=== PATIENT | male | born 1955 | race Caucasian/White ===

== ENCOUNTER 2016-10-27 17:12 | Inpatient (IN) | payer MEDICARE, OTHER ==
[~2016-10-27] VITALS: Ht 190.5 cm; Wt 130.4 kg
[2016-10-27] MEDS ORDERED: HYDROmorphone 1 MG/ML, 1ML ONE (17:49)
[2016-10-27] MEDS ORDERED: SODIUM CHLORIDE FLUSH 10ML SYR IVF ONE (18:00)
[2016-10-27] MEDS ORDERED: HYDROmorphone 1 MG/ML, 1ML IVPush PRN (18:00)
[2016-10-27] MEDS ORDERED: SODIUM CHLORIDE 0.9% 1,000ML IVBOLUS ONE ×3 (18:00→21:00)
[2016-10-27 18:13] LABS: ASPARTATE AMINO TRANSFERASE 27 U/L (15-37); BLOOD UREA NITROGEN 20 mg/dL (7-18)
[2016-10-27] MEDS ORDERED: OXYM30TA8 PO (18:44)
[2016-10-27] MEDS ORDERED: DILT180C72 PO (18:46)
[2016-10-27] MEDS ORDERED: OXYC10TA6 PO (18:46)
[2016-10-27] MEDS ORDERED: HYDR12.53 PO (18:47)
[2016-10-27] MEDS ORDERED: LOSA100T6 PO (18:47)
[2016-10-27] MEDS ORDERED: CEFTRIAXONE PMX 1GM/50ML 50 ML ONE (19:39)
[2016-10-27] MEDS ORDERED: CEFTRIAXONE PMX 1GM/50ML 50 ML IV ONE (20:00)
[2016-10-27] MEDS ORDERED: PHENAZOPYRIDINE 200 MG TABLET ONE (20:28)
[2016-10-27] MEDS ORDERED: PHENAZOPYRIDINE 200 MG TABLET PO ONE (20:30)
[2016-10-27] MEDS ORDERED: LABETALOL 5MG/ML, 20ML IVPush PRN (21:30)
[2016-10-27] MEDS ORDERED: BISACODYL 10 MG SUPP PR PRN (21:30)
[2016-10-27] MEDS ORDERED: DOCUSATE 100 MG CAPSULE PO PRN (21:30)
[2016-10-27] MEDS ORDERED: ONDANSETRON ODT 4 MG PO PRN (21:30)
[2016-10-27] MEDS ORDERED: ACETAMINOPHEN 325 MG TABLET PO PRN (21:30)
[2016-10-27] MEDS ORDERED: CEFTRIAXONE 2 GM in SODIUM CHLORIDE 0.9% 50 ML IV SCH (21:30)
[2016-10-27] MEDS ORDERED: TRAZODONE 50MG TABLET PO PRN (21:30)
[2016-10-27] MEDS ORDERED: POLYETHYLENE GLYCOL 17 GM PACKET PO PRN (21:30)
[2016-10-27] MEDS ORDERED: OXYcodone IR 5MG TABLET PO PRN (22:00)
[2016-10-27] MEDS: CEFTRIAXONE PMX 2GM/50ML 50 ML IV SCH (23:29)
[2016-10-27] MEDS: HEPARIN 5,000 UNITS/ML, 1ML SQ SCH (23:29)
[2016-10-27 23:48] VITALS: BP 108/72
[2016-10-28 00:08] VITALS: BP 100/62
[2016-10-28] MEDS: NS + 20MEQ KCL 1,000 ML IV SCH ×5 (00:17→23:35)
[2016-10-28 04:02] VITALS: BP 123/68
[2016-10-28 06:00] LABS: ASPARTATE AMINO TRANSFERASE 20 U/L (15-37); BLOOD UREA NITROGEN 19 mg/dL (7-18)
[2016-10-28] MEDS ORDERED: OXYcodone IR 5MG TABLET PO PRN (06:00)
[2016-10-28] MEDS ORDERED: TEMPLATE NON-FORMULARY MED. (Oxycodone Hcl** 10 MG) PO SCH (06:00)
[2016-10-28 07:23] VITALS: BP 117/71
[2016-10-28] MEDS ORDERED: OXYMORPHONE HCL 30 MG HOMEMEDPO PRN (09:00)
[2016-10-28] MEDS ORDERED: OXYMORPHONE HCL 30 MG PO SCH (09:00)
[2016-10-28] MEDS: HEPARIN 5,000 UNITS/ML, 1ML SQ SCH ×3 (09:44→23:36)
[2016-10-28 12:32] VITALS: BP 129/90
[2016-10-28] MEDS ORDERED: LABETALOL 5MG/ML, 20ML IVPush PRN (13:39)
[2016-10-28 19:56] VITALS: BP 144/78
[2016-10-28] MEDS: CEFTRIAXONE PMX 2GM/50ML 50 ML IV SCH (23:35)
[2016-10-29 00:10] VITALS: BP 112/68
[2016-10-29 04:09] VITALS: BP 135/84
[2016-10-29 05:35] LABS: BLOOD UREA NITROGEN 13 mg/dL (7-18)
[2016-10-29 05:39] LABS: ASPARTATE AMINO TRANSFERASE 28 U/L (15-37)
[2016-10-29] MEDS: NS + 20MEQ KCL 1,000 ML IV SCH ×3 (05:50→16:59)
[2016-10-29 07:12] VITALS: BP 138/79
[2016-10-29] MEDS: HEPARIN 5,000 UNITS/ML, 1ML SQ SCH ×3 (10:03→22:42)
[2016-10-29 13:39] VITALS: BP 157/90
[2016-10-29 18:54] VITALS: BP 148/88
[2016-10-29] MEDS: CEFTRIAXONE PMX 2GM/50ML 50 ML IV SCH (22:51)
[2016-10-30] MEDS: NS + 20MEQ KCL 1,000 ML IV SCH (00:47)
[2016-10-30 01:57] VITALS: BP 133/81
[2016-10-30 04:56] LABS: ASPARTATE AMINO TRANSFERASE 21 U/L (15-37); BLOOD UREA NITROGEN 12 mg/dL (7-18)
[2016-10-30] MEDS: HEPARIN 5,000 UNITS/ML, 1ML SQ SCH ×2 (07:28→15:30)
[2016-10-30 07:36] VITALS: BP 168/95
[2016-10-30] MEDS ORDERED: NS + 20MEQ KCL 1,000 ML IV SCH (08:30)
[2016-10-30 14:23] VITALS: BP 152/88
[2016-10-30] MEDS ORDERED: CEFTRIAXONE PMX 2GM/50ML 50 ML IV ONE (14:30)
[2016-10-30] MEDS ORDERED: CEFD300C37 PO (14:56)
== END 2016-10-30 16:48 | disposition home or self-care (01) | DRG 871 ==
LOC: ED 18:39 → EDIP 20:43 → 4EST 21:48 → DCLOUNGE 10-30 16:34
PROVIDERS: ADMIT Internal Medicine; ATTEND Internal Medicine
DX: A41.9 Sepsis, unspecified organism (principal); N17.0 Acute kidney failure with tubular necrosis; E43 Unspecified severe protein-calorie malnutrition; E87.1 Hypo-osmolality and hyponatremia; R65.20 Severe sepsis without septic shock; D64.9 Anemia, unspecified; Z96.651 Presence of right artificial knee joint; I45.10 Unspecified right bundle-branch block; E11.9 Type 2 diabetes mellitus without complications; E87.6 Hypokalemia; I10 Essential (primary) hypertension; M15.9 Polyosteoarthritis, unspecified; N13.9 Obstructive and reflux uropathy, unspecified; Z80.42 Family history of malignant neoplasm of prostate; Z85.46 Personal history of malignant neoplasm of prostate; Z79.899 Other long term (current) drug therapy; Z68.35 Body mass index [BMI] 35.0-35.9, adult
CPT/HCPCS: 36415; 80053; 81001; 83036; 83605; 83735; 84145; 84439; 84443; 85025; 85610; 85730; 86850; 86900; 87040; 87086; 87150; 93005; 96361; 96374; J0696; J1170; J1644; J3480; J7030

== ENCOUNTER 2017-08-13 18:07 | Day surgery (SDC) | payer MEDICARE ==
[~2017-08-13 18:07] MED LIST: CEFD300C37 PO; DILT180C72 PO; HYDR12.53 PO; LOSA100T6 PO; OXYC10TA6 PO; OXYM30TA8 PO
[2017-08-13 18:30] VITALS: BP 135/85
[2017-08-13] MEDS ORDERED: FENTANYL PF 100 MCG/2ML ONE ×2 (19:03→19:50)
[2017-08-13] MEDS ORDERED: MIDAZOLAM 1 MG/ML, 2ML ONE (19:03)
[2017-08-13 19:05] LABS: BASOPHILS # (AUTO) 0.06 x10^3/uL (0-0.1); BASOPHILS % (AUTO) 1 % (0-1); EOSINOPHILS # (AUTO) 0.38 x10^3/uL (0-0.4); EOSINOPHILS % (AUTO) 4 % (1-7); LYMPHOCYTES # (AUTO) 3.12 x10^3/uL (1-3.4); LYMPHOCYTES % (AUTO) 29 % (22-44); MD NO; MEAN CORPUSCULAR HEMOGLOBIN 30.6 pg (27.5-34.5); MEAN CORPUSCULAR HGB CONC 33.8 g/dL (33.2-36.2); MEAN CORPUSCULAR VOLUME 90.6 fL (81-97); MEAN PLATELET VOLUME 8.2 fL (7.4-10.4); MONOCYTES # (AUTO) 0.78 x10^3/uL (0.2-0.8); MONOCYTES % (AUTO) 7 % (2-9); NEUTROPHILS # (AUTO) 6.36 x10^3/uL (1.8-6.8); NEUTROPHILS % (AUTO) 60 % (42-75); PLATELET COUNT 224 x10^3/uL (130-400); RED BLOOD COUNT 5.29 x10^6/uL (4.38-5.82); RED CELL DISTRIBUTION WIDTH 14.9 % (9.4-14.8)
[2017-08-13 19:12] LABS: ALANINE AMINOTRANSFERASE 68 U/L (12-78); ALBUMIN 3.8 g/dL (3.4-5.0); ANION GAP 8 mmol/L (5-15); CALCIUM 8.4 mg/dL (8.5-10.1); CHLORIDE 102 mmol/L (98-107); CREATININE 1.09 mg/dL (0.7-1.3)
[2017-08-13 19:14] LABS: ALKALINE PHOSPHATASE 95 U/L (45-117); BILIRUBIN,TOTAL 0.3 mg/dL (0.2-1.0); TOTAL PROTEIN 7.6 g/dL (6.4-8.2)
[2017-08-13] MEDS ORDERED: CEFTRIAXONE 1,000 MG ONE (19:24)
[2017-08-13] MEDS ORDERED: PROPOFOL 10 MG/ML, 20ML ONE ×2 (19:26→19:48)
[2017-08-13] MEDS ORDERED: FENTANYL PF 100 MCG/2ML IV PRN (20:00)
[2017-08-13] MEDS ORDERED: HYDROmorphone 1 MG/ML, 1ML IV PRN (20:00)
[2017-08-13] MEDS ORDERED: LABETALOL 5MG/ML, 20ML IV PRN (20:00)
[2017-08-13] MEDS ORDERED: hydrALAzine 20 MG/ML, 1ML IV PRN (20:00)
[2017-08-13] MEDS ORDERED: morphine SULFATE 10 MG/ML, 1ML IV PRN (20:00)
[2017-08-13] MEDS ORDERED: ACETAMINOPHEN 325 MG TABLET PO PRN (20:00)
[2017-08-13] MEDS ORDERED: MEPERIDINE/PF 25MG/0.5ML IVPush PRN (20:00)
[2017-08-13] MEDS ORDERED: PLEASE ENTER HEIGHT AND WEIGHT MC SCH (20:00)
[2017-08-13] MEDS ORDERED: OXYcodone 5 MG/5 ML ORAL.SOL UDC PO PRN (20:00)
[2017-08-13] MEDS ORDERED: OXYcodone 5 MG/5 ML ORAL.SOL UDC ONE (20:47)
[2017-08-13] MEDS ORDERED: ACETAMINOPHEN 325 MG TABLET ONE (20:48)
[2017-08-13] MEDS ORDERED: ACETAMINOPHEN 650 MG/20.3 ML UDC ONE (20:48)
[2017-08-13] MEDS ORDERED: NITR100C56 PO (21:40)
[2017-08-13] MEDS ORDERED: BACI3.5O8 TP (21:45)
== END 2017-08-13 22:33 | disposition home or self-care (01) ==
LOC: OR 18:07 → 4NOR 18:29 → OR 22:33
PROVIDERS: ATTEND Urology
DX: N35.8 Other urethral stricture (principal); N42.89 Other specified disorders of prostate; I10 Essential (primary) hypertension; E11.9 Type 2 diabetes mellitus without complications; Z87.39 Personal history of other diseases of the musculoskeletal system and connective tissue
CPT/HCPCS: 36415; 52281; 74018; 76000; 80053; 85025; 93005; C1757; C1769; J0696; J2250; J2704; J3010

== ENCOUNTER 2017-10-24 09:21 | Day surgery (SDC) | payer MEDICARE ==
[~2017-10-24] VITALS: Ht 188 cm; Wt 123.3 kg
[~2017-10-24 09:21] MED LIST changes: +BACI3.5O8 TP; +NITR100C56 PO
[2017-10-24] MEDS ORDERED: OXYC20TA42 PO (09:55)
[2017-10-24] MEDS ORDERED: KETAMINE BC (09:55)
[2017-10-24 10:07] VITALS: BP 144/86
[2017-10-24] MEDS ORDERED: LIDOCAINE-MPF 1%, 2ML ONE (10:15)
[2017-10-24 10:18] LABS: MICROSCOPIC NOT IND
[2017-10-24 10:24] LABS: CULTURE INDICATED? NO
[2017-10-24] MEDS ORDERED: PLEASE ENTER HEIGHT AND WEIGHT MC SCH (10:30)
[2017-10-24] MEDS ORDERED: LACTATED RINGERS 1,000 ML IV SCH (11:00)
[2017-10-24] MEDS ORDERED: LIDOCAINE-MPF 1%, 2ML INFIL ONE (11:00)
[2017-10-24] MEDS ORDERED: FENTANYL PF 100 MCG/2ML ONE ×2 (11:21→12:48)
[2017-10-24] MEDS ORDERED: MIDAZOLAM 1 MG/ML, 2ML ONE (11:21)
[2017-10-24] MEDS ORDERED: DEXAMETHASONE 4 MG/ML, 1ML ONE (11:46)
[2017-10-24] MEDS ORDERED: ONDANSETRON 2MG/ML, 2ML ONE (11:46)
[2017-10-24] MEDS ORDERED: PROPOFOL 10 MG/ML, 20ML ONE (11:46)
[2017-10-24] MEDS ORDERED: CEFAZOLIN 1,000 MG ONE (11:46)
[2017-10-24] MEDS ORDERED: MIDAZOLAM 1 MG/ML, 2ML IV PRN (12:00)
[2017-10-24] MEDS ORDERED: LABETALOL 5MG/ML, 20ML IV PRN (12:00)
[2017-10-24] MEDS ORDERED: SCOPOLAMINE PATCH, 1.5MG PATCH.TD72 TD PRN (12:00)
[2017-10-24] MEDS ORDERED: PROMETHAZINE 12.5 MG SUPP PR PRN (12:00)
[2017-10-24] MEDS ORDERED: ALBUTEROL SULFATE 2.5 MG/3 ML NPPB PRN (12:00)
[2017-10-24] MEDS ORDERED: MEPERIDINE/PF 25MG/0.5ML IVPush PRN (12:00)
[2017-10-24] MEDS ORDERED: OXYcodone 5 MG/5 ML ORAL.SOL UDC PO PRN (12:00)
[2017-10-24] MEDS ORDERED: PROMETHAZINE 25 MG/ML, 1ML IV PRN (12:00)
[2017-10-24] MEDS ORDERED: ACETAMINOPHEN 325 MG TABLET PO PRN (12:00)
[2017-10-24] MEDS ORDERED: ONDANSETRON ODT 8 MG PO PRN (12:00)
[2017-10-24] MEDS ORDERED: hydrALAzine 20 MG/ML, 1ML IV PRN (12:00)
[2017-10-24] MEDS ORDERED: MORPHINE SULFATE 4 MG/ML, 1ML IVPush PRN (12:00)
[2017-10-24] MEDS ORDERED: OXYcodone 5 MG/5 ML ORAL.SOL UDC ONE (12:48)
[2017-10-24] MEDS ORDERED: ACETAMINOPHEN 650 MG/20.3 ML UDC ONE (12:48)
[2017-10-24] MEDS: FENTANYL PF 100 MCG/2ML IV PRN ×2 (13:08→13:15)
== END 2017-10-24 15:10 | disposition home or self-care (01) ==
LOC: OUT 09:21
PROVIDERS: ATTEND Urology
DX: N35.9 Urethral stricture, unspecified (principal); I10 Essential (primary) hypertension; E11.9 Type 2 diabetes mellitus without complications; Z98.890 Other specified postprocedural states; Z87.39 Personal history of other diseases of the musculoskeletal system and connective tissue; Z85.46 Personal history of malignant neoplasm of prostate
CPT/HCPCS: 52281; 81003; 82962; 87086; C1769; J0690; J1100; J2250; J2405; J2704; J3010; J3490; J7120

== ENCOUNTER 2018-06-03 07:31 | Inpatient (IN) | payer MEDICARE ==
[~2018-06-03] VITALS: Ht 185.4 cm; Wt 129.3 kg
[~2018-06-03 07:31] MED LIST changes: +HYDR12.517 PO; -HYDR12.53 PO; +KETAMINE BC; +LOSA100T14 PO; -LOSA100T6 PO; +OXYC20TA42 PO
[2018-06-03 08:30] LABS: MEAN CORPUSCULAR HEMOGLOBIN 33.1 pg (27.5-34.5); MEAN CORPUSCULAR HGB CONC 34.3 g/dL (33.2-36.2); MEAN CORPUSCULAR VOLUME 96.5 fL (81-97); MEAN PLATELET VOLUME 8.4 fL (7.4-10.4); PLATELET COUNT 176 x10^3/uL (130-400); RED BLOOD COUNT 4.23 x10^6/uL (4.38-5.82); RED CELL DISTRIBUTION WIDTH 15.1 % (9.4-14.8)
[2018-06-03 08:41] LABS: ALANINE AMINOTRANSFERASE 54 U/L (12-78); ALBUMIN 3.1 g/dL (3.4-5.0); ANION GAP 6 mmol/L (5-15); CALCIUM 8.1 mg/dL (8.5-10.1); CHLORIDE 97 mmol/L (98-107); CREATININE 0.96 mg/dL (0.7-1.3)
[2018-06-03 08:45] LABS: ALKALINE PHOSPHATASE 100 U/L (45-117); BILIRUBIN,TOTAL 0.4 mg/dL (0.2-1.0); TOTAL PROTEIN 6.5 g/dL (6.4-8.2); TROPONIN I < 0.015 ng/mL (0.000-0.045)
[2018-06-03 09:07] LABS: MD YES
[2018-06-03 09:16] LABS: <RBC MORPHOLOGY> NORMAL; BAND#(MANUAL) 1.78 x10^3/uL; BANDS%(MANUAL) 12 % (0-7); LYMPH#(MANUAL) 1.33 x10^3/uL (1-3.4); LYMPHS% (MANUAL) 9 % (22-44); MONOS#(MANUAL) 1.78 x10^3/uL (0.3-2.7); MONOS% (MANUAL) 12 % (2-9); SEG#(MANUAL) 9.92 x10^3/uL (1.8-6.8); SEGS% (MANUAL) 67 % (42-75)
[2018-06-03 09:17] LABS: <PLATELET ESTIMATE> ADEQUATE; <PLT MORPHOLOGY> NORMAL PLT MORPH
[2018-06-03] MEDS ORDERED: POTA10TA31 PO (09:35)
[2018-06-03] MEDS ORDERED: CHOL500015 PO (09:35)
[2018-06-03] MEDS ORDERED: PRED5TAB PO (09:35)
[2018-06-03] MEDS ORDERED: ABIR250T PO (09:35)
[2018-06-03] MEDS ORDERED: TAXOTERE (09:35)
[2018-06-03] MEDS ORDERED: LUPRON (09:35)
[2018-06-03] MEDS ORDERED: DENO120V IV (09:35)
[2018-06-03] MEDS ORDERED: CEFTRIAXONE PMX 1GM/50ML 50 ML IVPB ONE (10:30)
[2018-06-03] MEDS ORDERED: CEFTRIAXONE PMX 1GM/50ML 50 ML ONE (10:45)
--- NOTE | 2018-06-03 11:04 | NUR ---
IV started. VSS. Estrella Jiang APN at bedside. No other needs.
[2018-06-03] MEDS ORDERED: OXYcodone IR 5MG TABLET PO PRN (11:30)
[2018-06-03] MEDS ORDERED: POLYETHYLENE GLYCOL 17 GM PACKET PO PRN (11:30)
[2018-06-03] MEDS ORDERED: ACETAMINOPHEN 325 MG TABLET PO PRN (11:30)
[2018-06-03] MEDS ORDERED: BISACODYL 10 MG SUPP PR PRN (11:30)
[2018-06-03] MEDS ORDERED: ONDANSETRON 2MG/ML, 2ML IVPush PRN (11:30)
[2018-06-03] MEDS ORDERED: POTASSIUM CHLORIDE 20 MEQ TAB.ER.PRT PO ONE (11:30)
[2018-06-03] MEDS ORDERED: DOCUSATE 100 MG CAPSULE PO PRN (11:30)
[2018-06-03] MEDS ORDERED: VANCOMYCIN PER PHARMACY MC PRN (11:30)
[2018-06-03] MEDS ORDERED: LABETALOL 5MG/ML, 20ML IVPush PRN (11:30)
[2018-06-03] MEDS ORDERED: KETOROLAC 30 MG/1 ML IV PRN (11:30)
--- NOTE | 2018-06-03 11:33 | NUR ---
Constanza bermudez. US at bedside.
--- NOTE | 2018-06-03 11:56 | NUR ---
Report to SMITH Dunn.
[2018-06-03 11:58] LABS: C-REACTIVE PROTEIN, QUANT 5.7 mg/dL (0.02-0.49); THYROID STIMULATING HORMONE 0.624 mIU/L (0.358-3.740)
[2018-06-03 12:04] LABS: HCT (SEDRATE) 40.9 % (39.2-51.8)
[2018-06-03 12:42] VITALS: BP 138/82
[2018-06-03] MEDS: NS + 20MEQ KCL 1,000 ML IV SCH (12:48)
[2018-06-03] MEDS: AMPICILLIN/SULBACTAM 3 GM in SODIUM CHLORIDE 0.9% 100 ML IV SCH ×2 (12:48→18:35)
[2018-06-03] MEDS: ENOXAPARIN 40 MG/0.4 ML SQ SCH (12:57)
[2018-06-03] MEDS: XGEVA MC SCH ×2 (13:00→21:00)
[2018-06-03] MEDS ORDERED: PHARMACOKINETIC CONSULTATION MC ONE (13:00)
[2018-06-03] MEDS ORDERED: PHARMACOKINETIC MONITORING MC PRN (13:00)
[2018-06-03] MEDS: VANCOMYCIN 2,000 MG in SODIUM CHLORIDE 0.9% 500 ML IV SCH (13:43)
[2018-06-03 15:59] LABS: TROPONIN I < 0.015 ng/mL (0.000-0.045)
[2018-06-03 20:20] VITALS: BP 128/76
[2018-06-03 20:30] LABS: TROPONIN I < 0.015 ng/mL (0.000-0.045)
[2018-06-03] MEDS: OxyconTIN ER 20 MG TAB.ER PO SCH (20:38)
[2018-06-04] MEDS: AMPICILLIN/SULBACTAM 3 GM in SODIUM CHLORIDE 0.9% 100 ML IV SCH ×4 (01:11→19:34)
[2018-06-04 02:30] VITALS: BP 126/85
[2018-06-04 04:46] LABS: MEAN CORPUSCULAR HEMOGLOBIN 33.6 pg (27.5-34.5); MEAN CORPUSCULAR HGB CONC 34.3 g/dL (33.2-36.2); MEAN CORPUSCULAR VOLUME 97.7 fL (81-97); MEAN PLATELET VOLUME 8.1 fL (7.4-10.4); PLATELET COUNT 150 x10^3/uL (130-400); RED BLOOD COUNT 3.65 x10^6/uL (4.38-5.82)
[2018-06-04 05:00] LABS: ALBUMIN 2.5 g/dL (3.4-5.0); ANION GAP 5 mmol/L (5-15); CALCIUM 7.2 mg/dL (8.5-10.1); CHLORIDE 102 mmol/L (98-107)
[2018-06-04] MEDS: XGEVA MC SCH ×3 (05:00→21:00)
[2018-06-04 05:05] LABS: ALANINE AMINOTRANSFERASE 42 U/L (12-78); ALKALINE PHOSPHATASE 80 U/L (45-117); BILIRUBIN,TOTAL 0.4 mg/dL (0.2-1.0); CREATININE 0.76 mg/dL (0.7-1.3); TOTAL PROTEIN 5.4 g/dL (6.4-8.2)
[2018-06-04 05:49] LABS: MD YES
[2018-06-04 05:52] LABS: BAND#(MANUAL) 1.25 x10^3/uL; BANDS%(MANUAL) 6 % (0-7); LYMPH#(MANUAL) 0.62 x10^3/uL (1-3.4); LYMPHS% (MANUAL) 3 % (22-44); MONOS#(MANUAL) 3.74 x10^3/uL (0.3-2.7); MONOS% (MANUAL) 18 % (2-9); SEG#(MANUAL) 15.18 x10^3/uL (1.8-6.8); SEGS% (MANUAL) 73 % (42-75)
[2018-06-04 05:55] LABS: <RBC MORPHOLOGY> NORMAL
[2018-06-04 05:56] LABS: <PLATELET ESTIMATE> ADEQUATE; <PLT MORPHOLOGY> NORMAL PLT MORPH
[2018-06-04] MEDS: NS + 20MEQ KCL 1,000 ML IV SCH (06:16)
[2018-06-04 07:40] VITALS: BP 137/82
[2018-06-04] MEDS ORDERED: OxyconTIN ER 10 MG TAB.ER ONE (08:23)
[2018-06-04] MEDS: DILTIAZEM CD 180 MG CAP.ER.24H PO SCH (08:35)
[2018-06-04] MEDS: HYDROCHLOROTHIAZIDE 12.5 MG CAPSULE PO SCH (08:35)
[2018-06-04] MEDS: POTASSIUM CHLORIDE 10 MEQ TABLET.ER PO SCH (08:35)
[2018-06-04] MEDS: CHOLECALCIFEROL 5,000u TAB PO SCH (08:36)
[2018-06-04] MEDS: LOSARTAN 50MG TABLET PO SCH (08:36)
[2018-06-04] MEDS: VANCOMYCIN 2,000 MG in SODIUM CHLORIDE 0.9% 500 ML IV SCH (08:39)
[2018-06-04] MEDS: OxyconTIN ER 20 MG TAB.ER PO SCH ×2 (08:41→21:27)
[2018-06-04] MEDS ORDERED: DENOSUMAB 120 MG HOMEINJ SCH (09:00)
[2018-06-04] MEDS ORDERED: OXYC20TA2 PO (09:00)
[2018-06-04] MEDS ORDERED: OXYC5TAB3 PO (09:00)
[2018-06-04] MEDS ORDERED: OXYC20TA59 PO (09:00)
[2018-06-04] MEDS: ENOXAPARIN 40 MG/0.4 ML SQ SCH (11:23)
[2018-06-04] MEDS: OXYcodone IR 5MG TABLET PO PRN ×3 (11:50→19:48)
[2018-06-04 12:44] VITALS: BP 136/87
[2018-06-04] MEDS ORDERED: GADOBUTROL 10 MMOL/10 ML PFS ONE (17:00)
[2018-06-04 19:01] VITALS: BP 118/78
[2018-06-05] MEDS: AMPICILLIN/SULBACTAM 3 GM in SODIUM CHLORIDE 0.9% 100 ML IV SCH ×3 (01:30→13:41)
[2018-06-05] MEDS: VANCOMYCIN 2,000 MG in SODIUM CHLORIDE 0.9% 500 ML IV SCH (02:26)
[2018-06-05] MEDS: OXYcodone IR 5MG TABLET PO PRN ×3 (02:30→10:56)
[2018-06-05 03:35] VITALS: BP 118/74
[2018-06-05] MEDS: XGEVA MC SCH ×2 (05:00→13:00)
[2018-06-05 05:40] LABS: ANION GAP 6 mmol/L (5-15); CALCIUM 7.7 mg/dL (8.5-10.1); CHLORIDE 101 mmol/L (98-107); CREATININE 0.75 mg/dL (0.7-1.3)
[2018-06-05 05:41] LABS: MEAN CORPUSCULAR HEMOGLOBIN 33.9 pg (27.5-34.5); MEAN CORPUSCULAR VOLUME 96.7 fL (81-97); PLATELET COUNT 173 x10^3/uL (130-400); RED BLOOD COUNT 3.83 x10^6/uL (4.38-5.82); RED CELL DISTRIBUTION WIDTH 15.2 % (9.4-14.8)
[2018-06-05 06:00] LABS: MD YES
[2018-06-05 06:02] LABS: BAND#(MANUAL) 1.29 x10^3/uL; BANDS%(MANUAL) 5 % (0-7); BASOS#(MANUAL) 0.26 x10^3/uL (0-0.1); BASOS% (MANUAL) 1 % (0-1); LYMPH#(MANUAL) 1.29 x10^3/uL (1-3.4); LYMPHS% (MANUAL) 5 % (22-44); MONOS#(MANUAL) 2.31 x10^3/uL (0.3-2.7); MONOS% (MANUAL) 9 % (2-9); MYELOCYTES# (MANUAL) 0.77 x10^3/uL (0-0); MYELOCYTES% (MANUAL) 3 % (0-0); SEG#(MANUAL) 19.79 x10^3/uL (1.8-6.8); SEGS% (MANUAL) 77 % (42-75)
[2018-06-05 06:04] LABS: <RBC MORPHOLOGY> NORMAL
[2018-06-05 06:05] LABS: <PLATELET ESTIMATE> ADEQUATE; <PLT MORPHOLOGY> NORMAL PLT MORPH
[2018-06-05] MEDS: DILTIAZEM CD 180 MG CAP.ER.24H PO SCH (08:36)
[2018-06-05] MEDS: POTASSIUM CHLORIDE 10 MEQ TABLET.ER PO SCH (08:36)
[2018-06-05] MEDS: OxyconTIN ER 20 MG TAB.ER PO SCH (08:37)
[2018-06-05] MEDS: LOSARTAN 50MG TABLET PO SCH (08:37)
[2018-06-05] MEDS: CHOLECALCIFEROL 5,000u TAB PO SCH (08:37)
[2018-06-05] MEDS: HYDROCHLOROTHIAZIDE 12.5 MG CAPSULE PO SCH (08:38)
[2018-06-05 08:42] VITALS: BP 147/82
[2018-06-05] MEDS: ENOXAPARIN 40 MG/0.4 ML SQ SCH (11:30)
[2018-06-05 12:03] LABS: HCT (SEDRATE) 38.1 % (39.2-51.8)
[2018-06-05] MEDS ORDERED: AMOX1TAB64 PO (12:26)
[2018-06-05] MEDS ORDERED: DOXY100T PO (12:26)
== END 2018-06-05 15:18 | disposition home or self-care (01) | DRG 872 ==
LOC: ED 08:59 → EDIP 10:34 → 5SO 12:11 → 3NW 06-04 16:21 → DCLOUNGE 06-05 15:02
PROVIDERS: ADMIT Internal Medicine; ATTEND Internal Medicine
DX: A41.9 Sepsis, unspecified organism (principal); L03.115 Cellulitis of right lower limb; L03.116 Cellulitis of left lower limb; E87.1 Hypo-osmolality and hyponatremia; C79.51 Secondary malignant neoplasm of bone; J98.11 Atelectasis; C61 Malignant neoplasm of prostate; E11.65 Type 2 diabetes mellitus with hyperglycemia; E87.6 Hypokalemia; I11.9 Hypertensive heart disease without heart failure; L84 Corns and callosities; Z82.49 Family history of ischemic heart disease and other diseases of the circulatory system; I45.10 Unspecified right bundle-branch block; M19.90 Unspecified osteoarthritis, unspecified site
CPT/HCPCS: 36415; 71045; 80048; 80053; 83605; 83735; 83880; 84443; 84484; 85025; 85651; 86140; 87040; 93005; 93306; 93970; 96365; 99285; A9585; G0378; J0295; J0696; J3370; J3480; J7040; J7512

== ENCOUNTER → 2018-11-29 | Outpatient (CLI) | payer MEDICARE ==
[~2018-11-29] MED LIST changes: +ABIR250T PO; +AMOX1TAB64 PO; +CHOL500015 PO; +DENO120V IV; +DOXY100T PO; +LUPRON; +OXYC20TA2 PO; +OXYC20TA59 PO; +OXYC5TAB3 PO; +POTA10TA31 PO; +PRED5TAB PO; +TAXOTERE
== END | disposition home or self-care (01) ==
LOC: CVU 15:49
PROVIDERS: ATTEND Internal Medicine Cardiovascular Disease
DX: I08.8 Other rheumatic multiple valve diseases (principal); I10 Essential (primary) hypertension
CPT/HCPCS: 93306

== ENCOUNTER 2019-12-15 20:58 | Observation (INO) | payer MEDICARE ==
[~2019-12-15] VITALS: Ht 190.5 cm; Wt 132.7 kg
[2019-12-15 21:45] LABS: BASOPHILS # (AUTO) 0.06 x10^3/uL (0-0.1); BASOPHILS % (AUTO) 1 % (0-1); EOSINOPHILS # (AUTO) 0.13 x10^3/uL (0-0.4); EOSINOPHILS % (AUTO) 1 % (1-7); LYMPHOCYTES # (AUTO) 4.11 x10^3/uL (1-3.4); LYMPHOCYTES % (AUTO) 32 % (22-44); MD NO; MEAN CORPUSCULAR HEMOGLOBIN 30.8 pg (27.5-34.5); MEAN CORPUSCULAR HGB CONC 33.2 g/dL (33.2-36.2); MONOCYTES # (AUTO) 0.97 x10^3/uL (0.2-0.8); MONOCYTES % (AUTO) 8 % (2-9); NEUTROPHILS # (AUTO) 7.53 x10^3/uL (1.8-6.8); NEUTROPHILS % (AUTO) 59 % (42-75); PLATELET COUNT 258 x10^3/uL (130-400); RED BLOOD COUNT 4.97 x10^6/uL (4.38-5.82); RED CELL DISTRIBUTION WIDTH 14.2 % (9.4-14.8)
[2019-12-15] MEDS ORDERED: HYDROmorphone 1 MG/ML, 1ML INJ IM STA (21:51)
[2019-12-15] MEDS ORDERED: HYDROmorphone 1 MG/ML, 1ML INJ ONE (21:52)
[2019-12-15 21:53] LABS: ALBUMIN 3.7 g/dL (3.4-5.0); ANION GAP 9 mmol/L (5-15); CALCIUM 8.9 mg/dL (8.5-10.1); CHLORIDE 104 mmol/L (98-107); CREATININE 0.99 mg/dL (0.7-1.3)
[2019-12-15] MEDS ORDERED: LIDOCAINE 2%,20 ML JEL.PF.APP MM ONE ×2 (21:53→22:00)
[2019-12-15] MEDS ORDERED: SODIUM CHLORIDE FLUSH 10ML SYR IVF ONE (22:30)
[2019-12-15] MEDS ORDERED: MORPHINE SULFATE 4 MG/ML, 1ML IVPush PRN (22:30)
--- NOTE | 2019-12-15 22:30 | NUR ---
Attempted gonzalez insertion without success. Receieved orders for IM dilaudid and urojet, reattempted insertion with coude catheter without success. Informed Dr Allen. Dr Mar being consulted for further evaluation.
[2019-12-15] MEDS ORDERED: MORPHINE SULFATE 4 MG/ML, 1ML ONE (22:31)
--- NOTE | 2019-12-15 23:19 | NUR ---
OR called for report, discussed pt presentation and ED interventions, rapid covid test in process at this time, pt in gown ready to be transported to OR
--- NOTE | 2019-12-15 23:26 | NUR ---
pt being transferred to OR at this time
[2019-12-15] MEDS ORDERED: PROPOFOL 50 ML ONE (23:46)
[2019-12-15] MEDS ORDERED: FENTANYL PF 100 MCG/2ML ONE (23:46)
[2019-12-15] MEDS ORDERED: CEFAZOLIN PMX 1GM/50ML ONE (23:50)
[2019-12-15] MEDS ORDERED: ONDANSETRON 2MG/ML, 2ML ONE (23:50)
[2019-12-15] MEDS ORDERED: DEXAMETHASONE 4 MG/ML, 1ML ONE (23:50)
[2019-12-16] MEDS ORDERED: FENTANYL PF 100 MCG/2ML ONE (00:12)
[2019-12-16] MEDS ORDERED: HALOPERIDOL 5 MG/ML IV PRN (00:30)
[2019-12-16] MEDS ORDERED: FENTANYL PF 100 MCG/2ML IV PRN (00:30)
[2019-12-16] MEDS ORDERED: PROMETHAZINE 25 MG/ML, 1ML IVPush PRN (00:30)
[2019-12-16] MEDS ORDERED: hydrALAzine 20 MG/ML, 1ML IV PRN (00:30)
[2019-12-16] MEDS ORDERED: DIPHENHYDRAMINE 50 MG/ML, 1ML IVPush PRN (00:30)
[2019-12-16] MEDS ORDERED: MEPERIDINE/PF 25MG/0.5ML IVPush PRN (00:30)
[2019-12-16] MEDS ORDERED: LABETALOL 5MG/ML, 20ML IV PRN (00:30)
[2019-12-16] MEDS ORDERED: OXYcodone 5 MG/5 ML ORAL.SOL UDC PO PRN (00:30)
[2019-12-16] MEDS ORDERED: HYDROmorphone 1 MG/ML, 1ML INJ IVPush PRN (00:30)
[2019-12-16] MEDS ORDERED: OXYcodone 5 MG/5 ML ORAL.SOL UDC ONE (00:38)
[2019-12-16] MEDS ORDERED: ONDANSETRON 2MG/ML, 2ML IV PRN (01:00)
[2019-12-16] MEDS ORDERED: OXYcodone/APAP 5/325MG TABLET PO PRN (01:00)
[2019-12-16 01:15] VITALS: BP 149/90
[2019-12-16 03:55] VITALS: BP 129/80
[2019-12-16] MEDS: OXYcodone IR 5MG TABLET PO PRN ×2 (05:22→09:18)
[2019-12-16 07:31] VITALS: BP 127/79
[2019-12-16] MEDS ORDERED: LOSARTAN 100 MG TAB PO SCH ×2 (09:00→18:00)
[2019-12-16] MEDS ORDERED: CHOLECALCIFEROL 5,000u TAB PO SCH (09:00)
== END 2019-12-16 12:04 | disposition home or self-care (01) ==
LOC: ED 21:29 → EDIP 23:24 → 5SO 12-16 01:05 → DCLOUNGE 12-16 11:51
PROVIDERS: ADMIT Urology; ATTEND Urology
DX: Z03.818 Encounter for observation for suspected exposure to other biological agents ruled out (principal); N35.919 Unspecified urethral stricture, male, unspecified site; N40.1 Benign prostatic hyperplasia with lower urinary tract symptoms; R33.8 Other retention of urine; I10 Essential (primary) hypertension; E11.9 Type 2 diabetes mellitus without complications; M19.90 Unspecified osteoarthritis, unspecified site; E66.9 Obesity, unspecified; Z85.46 Personal history of malignant neoplasm of prostate
CPT/HCPCS: 36415; 52276; 80048; 82040; 85025; 87635; 96372; 96374; 99284; C1769; G0378; J0690; J1100; J1170; J2270; J2405; J2704; J3010

== ENCOUNTER 2020-02-20 09:24 | Day surgery (SDC) | payer MEDICARE ==
[~2020-02-20] VITALS: Ht 188 cm; Wt 134.0 kg
[2020-02-20 09:53] VITALS: BP 130/90
[2020-02-20] MEDS ORDERED: CHLORHEXIDINE 15 ML UDC MM STA (09:58)
[2020-02-20] MEDS ORDERED: LACTATED RINGERS 1,000 ML IV SCH (10:40)
[2020-02-20] MEDS ORDERED: FENTANYL PF 100 MCG/2ML ONE (11:50)
[2020-02-20] MEDS ORDERED: MIDAZOLAM 1 MG/ML, 2ML ONE (11:50)
[2020-02-20] MEDS ORDERED: CEFTRIAXONE 1,000 MG ONE (13:06)
[2020-02-20] MEDS ORDERED: PROPOFOL 10 MG/ML, 20ML ONE (13:25)
[2020-02-20] MEDS ORDERED: ONDANSETRON 2MG/ML, 2ML ONE (13:25)
[2020-02-20] MEDS ORDERED: DEXAMETHASONE 4 MG/ML, 1ML ONE (13:25)
[2020-02-20] MEDS ORDERED: KETOROLAC 30 MG/1 ML ONE (13:26)
[2020-02-20] MEDS ORDERED: LIDOCAINE-MPF 2% ,5ML ONE (13:26)
[2020-02-20] MEDS ORDERED: MEPERIDINE/PF 25MG/0.5ML IVPush PRN (13:30)
[2020-02-20] MEDS ORDERED: ALBUTEROL SULFATE 2.5 MG/3 ML NPPB PRN (13:30)
[2020-02-20] MEDS ORDERED: PROMETHAZINE 25 MG/ML, 1ML IVPush PRN (13:30)
[2020-02-20] MEDS ORDERED: HYDROmorphone 1 MG/ML, 1ML INJ IVPush PRN (13:30)
[2020-02-20] MEDS ORDERED: LORazepam 2 MG/ML, 1ML IVPush PRN (13:30)
[2020-02-20] MEDS ORDERED: hydrALAzine 20 MG/ML, 1ML IV PRN (13:30)
[2020-02-20] MEDS ORDERED: ACETAMINOPHEN 325 MG TABLET PO PRN (13:30)
[2020-02-20] MEDS ORDERED: FENTANYL PF 100 MCG/2ML IV PRN (13:30)
[2020-02-20] MEDS ORDERED: OXYcodone 5 MG/5 ML ORAL.SOL UDC PO PRN (13:30)
[2020-02-20] MEDS ORDERED: LABETALOL 5MG/ML, 20ML IV PRN (13:30)
[2020-02-20] MEDS ORDERED: OMNIPAQUE 350 MG/ML, 150 ML BOTTLE ONE (14:23)
== END 2020-02-20 15:15 | disposition home or self-care (01) ==
LOC: OUT 09:24
PROVIDERS: ATTEND Urology
DX: N99.110 Postprocedural urethral stricture, male, meatal (principal); C61 Malignant neoplasm of prostate; C79.51 Secondary malignant neoplasm of bone; Z79.899 Other long term (current) drug therapy; I10 Essential (primary) hypertension; E11.9 Type 2 diabetes mellitus without complications; E66.9 Obesity, unspecified; Z68.37 Body mass index [BMI] 37.0-37.9, adult; Z82.49 Family history of ischemic heart disease and other diseases of the circulatory system; Z98.890 Other specified postprocedural states
CPT/HCPCS: 51610; 51705; 74450; 82962; 87635; 93005; J0696; J1100; J1885; J2250; J2405; J2704; J3010; Q9967; 74430